=== PATIENT | female | born 1970 | race Caucasian/White ===

== ENCOUNTER 2018-09-25 10:06 | Outpatient (CLI) | payer MEDICAID | END 2018-09-25 10:07 | disposition home or self-care (01) | LOC: LAB 10:06 | PROVIDERS: ATTEND Internal Medicine | DX: Z23 Encounter for immunization (principal); Z28.3 Underimmunization status | CPT/HCPCS: 36415; 86317; 86735; 86762; 86765; 86787 ==

== ENCOUNTER 2018-12-10 17:37 | Emergency (ER) | payer MEDICAID ==
[2018-12-10 17:51] VITALS: BP 118/73
[2018-12-10] MEDS ORDERED: ALBUTEROL NEB 2.5 MG/3 ML INH STA (17:58)
[2018-12-10] MEDS ORDERED: DEXAMETHASONE 10 MG/ML VIAL PO STA (17:58)
[2018-12-10] MEDS ORDERED: IBUPROFEN 800 MG TABLET PO STA (17:58)
[2018-12-10] MEDS ORDERED: CHERRY SYRUP 10 ML UDC PO ONE (18:06)
--- NOTE | 2018-12-10 18:08 | ED Physician Documentation ---
History of Present Illness - Stated complaint Stated Complaint: SOA/ST - Chief complaint Chief Complaint: Resp - History obtained from History obtained from: Patient - History of Present Illness Timing: How many days ago (2) Pain level max: 6 Pain level now: 5 - Additonal information Additional information: 48-year-old female with sore throat today. States it feels like she is swallowing needles. Took Motrin this morning without relief. Also has lost her voice. No fevers. No rhinorrhea or congestion. Is having mild coughing. No vomiting. No abdominal pain. Review of Systems Constitutional: denies: Fever, Chills Nose: denies: Rhinorrhea / runny nose, Congestion Throat: reports: Sore throat Respiratory: reports: Cough GI: denies: Abdominal Pain, Nausea, Vomiting, Diarrhea Skin: denies: Rash Musculoskeletal: denies: Neck pain, Back pain Neurologic: denies: Headache PD PAST MEDICAL HISTORY - Past Medical History Past Medical History: Yes Respiratory: Asthma Endocrine/Autoimmune: HyPOthyroidism Psych: Depression - Past Surgical History Past Surgical History: No - Present Medications Home Medications: Ambulatory Orders Medication Instructions Recorded Confirmed Albuterol 2.5 mg INH Q4H PRN #30 neb 12/10/18 Fluticasone/Salmeterol [Advair 1 each IH DAILY 12/10/18 12/10/18 250-50 Diskus] Levothyroxine [Synthroid] 100 mcg PO QDAC 12/10/18 12/10/18 Montelukast [Singulair] 10 mg PO QPM 12/10/18 12/10/18 Sertraline HCl [Zoloft] 150 mg PO QPM 12/10/18 12/10/18 - Allergies Allergies/Adverse Reactions: Allergies Allergy/AdvReac Type Severity Reaction Status Date / Time Sulfa (Sulfonamide Allergy Anaphylaxis Verified 12/10/18 17:46 Antibiotics) - Social History Does the pt smoke?: No Smoking Status: Never smoker Does the pt drink ETOH?: No Does the pt have substance abuse?: No - Immunizations Immunizations are current?: Yes PD ED PE NORMAL - Vitals Vital signs reviewed: Yes - General General: Alert and oriented X 3, No acute distress - HEENT HEENT: Ears normal, Moist mucous membranes, Other (Mild posterior pharyngeal erythema without tonsillar exudates. Uvula midline. Normal phonation. No trismus) - Neck Neck: Supple, no meningeal sign, No adenopathy - Cardiac Cardiac: RRR - Respiratory Respiratory: No respiratory distress, Other (Mild wheeze bilaterally) - Abdomen Abdomen: Soft, Non tender, Non distended - Derm Derm: Warm and dry - Extremities Extremities: No edema - Neuro Neuro: Alert and oriented X 3 Results - Vitals Vitals: Vital Signs - 24 hr 12/10/18 12/10/18 17:40 18:15 Temperature 36.6 C Heart Rate 61 74 Respiratory 20 18 Rate Blood Pressure 118/73 O2 Saturation 96 Oxygen O2 Source Room air - Labs Labs: Laboratory Tests 12/10/18 18:07 Group A Strep Rapid Negative PD MEDICAL DECISION MAKING - ED course Complexity details: considered differential, d/w patient ED course: 48-year-old female with what appears to be a viral upper respiratory infection and viral pharyngitis. Negative rapid strep. Given dexamethasone here. Also given a breathing treatment. She is very well-appearing, nontoxic. Declines any medications for home other than albuterol refills for her nebulizer. Tolerating p.o. without difficulty. Well-hydrated. Patient counseled regarding signs and symptoms for which I believe and urgent re-evaluation would be n ecessary. Patient with good understanding of and agreement to plan and is comfortable going home at this time This document was made in part using voice recognition software. While efforts are made to proofread this document, sound alike and grammatical errors may occur. Departure - Departure Disposition: 01 Home, Self Care Clinical Impression: Acute viral pharyngitis Upper respiratory tract infection Qualifiers: URI type: unspecified viral URI Qualified Code(s): J06.9 - Acute upper respiratory infection, unspecified Condition: Good Instructions: ED Pharyngitis Viral, ED URI Viral Follow-Up: Hermelinda Cordova MD [Primary Care Provider] - Within 1 week (if not better) Prescriptions: Albuterol 2.5 mg INH Q4H PRN #30 neb PRN Reason: Wheezing Comments: Use your inhaler or nebulizer as needed. Return if you worsen. Drink plenty of fluids and rest. Discharge Date/Time: 12/10/18 18:34
== END 2018-12-10 18:34 | disposition home or self-care (01) ==
LOC: ED 17:37
DX: J02.8 Acute pharyngitis due to other specified organisms (principal); B34.9 Viral infection, unspecified; J06.9 Acute upper respiratory infection, unspecified; E03.9 Hypothyroidism, unspecified
CPT/HCPCS: 87070; 87430; 94640; 94664; 99283; A9270

== ENCOUNTER 2019-09-06 12:50 | Emergency (ER) | payer MEDICAID ==
[2019-09-06 13:28] VITALS: BP 128/71
== END 2019-09-06 13:57 | disposition left against medical advice (07) ==
LOC: ED 12:50
DX: Z53.21 Procedure and treatment not carried out due to patient leaving prior to being seen by health care provider (principal)

== ENCOUNTER 2021-06-11 09:10 | Outpatient (CLI) | payer MEDICAID ==
[2021-06-11 10:01] LABS: MUDS CUTOFF CONCENTRATIONS CUTOFF CONC BELOW:
[2021-06-11 10:15] LABS: AMPHETAMINE SCREEN,URINE NEGATIVE (NEGATIVE); BARBITURATE SCREEN,UR NEGATIVE (NEGATIVE); BENZODIAZEPINES SCREEN, URINE NEGATIVE (NEGATIVE); COCAINE SCREEN URINE NEGATIVE (NEGATIVE); METHADONE SCREEN, URINE NEGATIVE (NEGATIVE); METHAMPHETAMINES SCREEN, URINE NEGATIVE (NEGATIVE); OPIATE SCREEN, URINE NEGATIVE (NEGATIVE); OXYCODONE SCREEN, URINE NEGATIVE (NEGATIVE); PROPOXYPHENE SCREEN, URINE NEGATIVE (NEGATIVE); THC CANNABINOID SCREEN, URINE NEGATIVE (NEGATIVE); TRICYCLIC ANTIDEPRESSANT,URINE NEGATIVE (NEGATIVE)
== END 2021-06-11 09:11 | disposition home or self-care (01) ==
LOC: LAB 09:10
PROVIDERS: ATTEND Psychiatry & Neurology Psychiatry
DX: Z79.899 Other long term (current) drug therapy (principal)
CPT/HCPCS: 80306; 93005

== ENCOUNTER 2021-06-12 02:21 | Emergency (ER) | payer MEDICAID ==
[2021-06-12] MEDS ORDERED: KETOROLAC 30 MG/ML VIAL IM STA (02:58)
--- NOTE | 2021-06-12 03:01 | ED Physician Documentation ---
History of Present Illness - Stated complaint Stated Complaint: TOOTH/FACE PX - Chief complaint Chief Complaint: Heent - History obtained from History obtained from: Patient - Additonal information Additional information: 50-year-old woman with history of poor dentition, multiple root canals, presents with left upper dental pain this evening that is throbbing, aching, severe, localized to the area and radiating up to the cheek. Denies fevers, trismus, difficulty with secretions, throat pain or shortness of breath. Review of Systems Throat: reports: Dental pain / toothache PD PAST MEDICAL HISTORY - Past Medical History Past Medical History: Yes Respiratory: Asthma Endocrine/Autoimmune: HyPOthyroidism Psych: Depression - Past Surgical History Past Surgical History: No - Present Medications Home Medications: Ambulatory Orders Medication Instructions Recorded Confirmed Levothyroxine [Synthroid] 100 mcg PO QDAC 12/10/18 12/10/18 Montelukast [Singulair] 10 mg PO QPM 12/10/18 12/10/18 Amoxicillin 875 mg PO BID #10 tablet 06/12/21 - Allergies Allergies/Adverse Reactions: Allergies Allergy/AdvReac Type Severity Reaction Status Date / Time Sulfa (Sulfonamide Allergy Anaphylaxis Verified 06/12/21 02:35 Antibiotics) - Social History Does the pt smoke?: No Smoking Status: Never smoker Does the pt drink ETOH?: No Does the pt have substance abuse?: No - Immunizations Immunizations are current?: Yes PD ED PE NORMAL - Vitals Vital signs reviewed: Yes - General General: Alert and oriented X 3, No acute distress, Well developed/nourished - HEENT HEENT: Atraumatic, PERRL, EOMI, Other (poor dentition. mild fluctuance L upper first molar. no trismus. tolerating secretions well) - Neck Neck: Supple, no meningeal sign - Derm Derm: Normal color, Warm and dry - Neuro Neuro: Alert and oriented X 3 - Psych Psych: Normal mood, Normal affect Results - Vitals Vitals: Vital Signs - 24 hr 06/12/21 06/12/21 02:32 02:39 Temperature 36.1 C L 36.1 C L Heart Rate 96 96 Respiratory 18 18 Rate Blood Pressure 113/67 113/67 O2 Saturation 99 99 Oxygen O2 Source Room air Procedures - General procedure General procedure: 1% lidocaine injected via periodontal block into left upper first molar adjacent gingiva with relief. EBL 0. Patient tolerated well. PD MEDICAL DECISION MAKING - ED course ED course: 50-year-old woman presents with dental pain, improved with Toradol and dental block. Antibiotic prescribed for mild fluctuance. Return precautions given. She will follow up with her dentist. Departure - Departure Disposition: 01 Home, Self Care Clinical Impression: Dental infection Condition: Good Instructions: ED Abscess Tooth Prescriptions: Amoxicillin 875 mg PO BID #10 tablet Comments: You were seen in the emergency department for dental pain. please follow-up with your dentist immediately for further evaluation. Take your antibiotics as prescribed and return to the emergency department you have any new or worsening symptoms or other concerns.
[2021-06-12 03:32] VITALS: BP 115/68
== END 2021-06-12 03:31 | disposition home or self-care (01) ==
LOC: ED 02:21
DX: K04.7 Periapical abscess without sinus (principal)
CPT/HCPCS: 64400